=== PATIENT | female | born 2000 | race Caucasian/White ===

== ENCOUNTER 2021-05-08 17:27 | Emergency (ER) | payer OTHER, SELFPAY ==
[2021-05-08 17:33] VITALS: BP 115/59; PULSE 84; RESP 22; TEMP 37.7; O2SAT 98
--- NOTE | 2021-05-08 18:05 | ED.ABDPAIN ---
HPI - Abdominal Pain <Hector Ramsey PA-C - Last Filed: 05/08/21 19:52> General Chief Complaint: Abdominal Pain Stated Complaint: Really bad Lower back Pain,spine,NVD, Time Seen by Provider: 05/08/21 17:46 Source: patient Mode of arrival: Ambulatory History of Present Illness HPI narrative: Courtney presents today with chief complaint of right lower back pain and right abdominal pain. She reports that this has waxed and waned over the last month. She was seen in an emergency room in [place] 1 month ago and they were wanting to do a CT scan to evaluate for appendicitis. However, that did not happen. She recently moved up here and is now staying with a mortgage sales manager. She reports that her pain is worsened over the last 2 days. She denies any significant urinary symptoms, nausea, vomiting, chest pain, shortness of breath, cough, sore throat, runny nose, vaginal irritation, vaginal discharge, vaginal bleeding, rash or any other acute concerns or complaints at this time. She denies any drug use but does endorse occasional marijuana use. She denies any known medical problems. She denies any previous abdominal surgeries. Related Data Home Medications Medication Instructions Recorded Confirmed No Known Home Medications 05/08/21 05/08/21 Allergies Allergy/AdvReac Type Severity Reaction Status Date / Time No Known Drug Allergies Allergy Verified 05/08/21 17:37 Review of Systems <Hector Ramsey PA-C - Last Filed: 05/08/21 19:52> Review of Systems Narrative: As per HPI Patient History <Hector Ramsey PA-C - Last Filed: 05/08/21 19:52> Social History Smoking Status: Never smoker Smoking Status: Never smoker Exam <Hector Ramsey PA-C - Last Filed: 05/08/21 19:52> Narrative Exam Narrative: Const General: cooperative, healthy appearing, comfortable and no acute distress Nutritional Appearance: average body habitus and well nourished Orientation: alert and oriented x3 HENMT Head: normal to inspection and normocephalic Ears: hearing grossly normal bilaterally, external ears normal, TM's normal bilaterally, EAC's normal, mastoids normal and no periauricular adenopathy Nose: external nose normal, nares normal and no nasal discharge Face and sinus: normal facial exam, sinuses nontender and face symmetric Mouth: oral mucosae normal, lip normal, tongue normal and moist mucous membranes Teeth and gingiva: dentition normal and gingiva normal Throat: posterior oropharynx normal, uvula midline, no postnasal drainage and no uvular edema Eyes periorbital findings normal, eyelids normal, conjunctivae normal Neck: normal visual inspection, full ROM, no lymphadenopathy, no meningeal signs and supple Resp normal respiratory effort, able to speak in complete sentences, not labored and no respiratory distress, clear to auscultation bilaterally, no crackles, no rales and no wheezes Cardio regular rate regular rhythm Heart Sounds: no gallops, no murmurs and no rubs GI Nondistended, normal bowel sounds, minimal tenderness right lower quadrant, no guarding, negative Crowder sign, no rebound tenderness, no masses noted No CVA tenderness Musculoskeletal No midline spine final tenderness noted. Mild right-sided lower lumbar paraspinal muscle tenderness with palpation. Negative straight leg raise bilaterally. Skin No rash or lesions noted. Neuro Alert and Oriented x3, normal gait, moves all extremities. Initial Vital Signs Initial Vital Signs: Vital Signs Temperature 100 F H 05/08/21 17:33 Pulse Rate 84 05/08/21 17:33 Respiratory Rate 22 05/08/21 17:33 Blood Pressure 115/59 L 05/08/21 17:33 Pulse Oximetry 98 05/08/21 17:33 <Hayden Bui DO - Last Filed: 05/08/21 21:05> Initial Vital Signs Initial Vital Signs: Vital Signs Temperature 100 F H 05/08/21 17:33 Pulse Rate 84 05/08/21 17:33 Respiratory Rate 22 05/08/21 17:33 Blood Pressure 115/59 L 05/08/21 17:33 Pulse Oximetry 98 05/08/21 17:33 Course <Hector Ramsey PA-C - Last Filed: 05/08/21 19:52> Orders Ordered: ED Orders 05/08/21 18:00 C-Reactive Protein Quant Stat Complete Blood Count AUTO DIFF Stat Comprehensive Metabolic Panel Stat Erythrocyte Sedimentation Rate Stat Lipase Stat 05/08/21 19:09 CT abdomen pelvis w con Stat 05/08/21 19:35 COVID19 -Nasal swab/Pre-Proc Stat Discontinued Medications Sodium Chloride (Normal Saline 0.9%) 1,000 mls @ 1,000 mls/hr IV BOLUS ONE Stop: 05/08/21 19:09 Last Admin: 05/08/21 18:41 Dose: 1,000 mls/hr Documented by: ROLAN Ketorolac Tromethamine (Ketorolac 30 Mg/Ml Vial) 15 mg IV NOW ONE Stop: 05/08/21 18:05 Last Admin: 05/08/21 18:40 Dose: 15 mg Documented by: ROLAN Vital Signs Vital signs: Vital Signs - 8 hr 05/08/21 17:33 05/08/21 19:56 Temperature 100 F H Pulse Rate 84 68 Respiratory Rate 22 18 Blood Pressure 115/59 L 138/68 Pulse Oximetry 98 100 <Hayden Bui DO - Last Filed: 05/08/21 21:05> Orders Ordered: ED Orders 05/08/21 18:00 C-Reactive Protein Quant Stat Complete Blood Count AUTO DIFF Stat Comprehensive Metabolic Panel Stat Erythrocyte Sedimentation Rate Stat Lipase Stat 05/08/21 19:09 CT abdomen pelvis w con Stat 05/08/21 19:35 COVID19 -Nasal swab/Pre-Proc Stat Discontinued Medications Sodium Chloride (Normal Saline 0.9%) 1,000 mls @ 1,000 mls/hr IV BOLUS ONE Stop: 05/08/21 19:09 Last Admin: 05/08/21 18:41 Dose: 1,000 mls/hr Documented by: ROLAN Ketorolac Tromethamine (Ketorolac 30 Mg/Ml Vial) 15 mg IV NOW ONE Stop: 05/08/21 18:05 Last Admin: 05/08/21 18:40 Dose: 15 mg Documented by: ROLAN Vital Signs Vital signs: Vital Signs - 8 hr 05/08/21 17:33 05/08/21 19:56 Temperature 100 F H Pulse Rate 84 68 Respiratory Rate 22 18 Blood Pressure 115/59 L 138/68 Pulse Oximetry 98 100 MDM - Abdominal Pain <Hector Ramsey PA-C - Last Filed: 05/08/21 19:52> Lab Data Result diagrams: 05/08/21 18:00 05/08/21 18:00 Labs: Lab Results 05/08/21 05/08/21 05/08/21 Range/Units 18:00 18:00 18:00 WBC 7.8 (4.5-11.0) X10^3/uL RBC 4.80 (4.0-5.2) X10^6/uL Hgb 13.4 (12.0-16.0) g/dL Hct 40.5 (36-46) % MCV 84.3 (80-100) fL MCH 28.0 (26-34) PG MCHC 33.2 (30-36) % RDW 16.0 H (11.6-14.8) % Plt Count 256 (150-400) X10^3/uL Neut % (Auto) 55.3 (50-75) % Lymph % (Auto) 32.5 (25-40) % Schleicher % (Auto) 5.3 (3-14) % Eos % (Auto) 5.9 H (2-4) % Baso % (Auto) 1.0 (0-2) % Neut # (Auto) 4300 (2280-5133) /uL Lymph # (Auto) 2500 (4549-1265) /uL Schleicher # (Auto) 400 (0-900) /uL Eos # (Auto) 500 H (0-450) /uL Baso # (Auto) 100 (0-100) /uL ESR 7 (0-20) MM/HR Sodium 141 (137-145) mmol/L Potassium 4.1 (3.4-5.1) mmol/L Chloride 107 (98-107) mmol/L Carbon Dioxide 28 (22-32) mmol/L BUN 14 (7-17) mg/dL Creatinine 0.64 (0.52-1.04) mg/dL Estimated GFR > 60.0 (>60) mL/min BUN/Creatinine Ratio 21.9 (6-22) Glucose 89 (70-100) mg/dL Calcium 9.6 (8.4-10.2) mg/dL Total Bilirubin 0.3 (0.2-1.3) mg/dL AST 25 (14-36) IU/L ALT 18 (<35) IU/L Alkaline Phosphatase 82 (38-126) U/L C-Reactive Protein (<1.0) mg/dL Total Protein 7.6 (6.3-8.2) g/dL Albumin 4.5 (3.5-5.0) g/dL Globulin 3.1 (1.7-4.1) g/dL Albumin/Globulin Ratio 1.5 (1.0-2.8) Lipase 48 (23-300) U/L SARS-CoV-2 (PCR) (Negative) 05/08/21 05/08/21 Range/Units 18:00 19:35 WBC (4.5-11.0) X10^3/uL RBC (4.0-5.2) X10^6/uL Hgb (12.0-16.0) g/dL Hct (36-46) % MCV (80-100) fL MCH (26-34) PG MCHC (30-36) % RDW (11.6-14.8) % Plt Count (150-400) X10^3/uL Neut % (Auto) (50-75) % Lymph % (Auto) (25-40) % Schleicher % (Auto) (3-14) % Eos % (Auto) (2-4) % Baso % (Auto) (0-2) % Neut # (Auto) (8228-6970) /uL Lymph # (Auto) (0618-1252) /uL Schleicher # (Auto) (0-900) /uL Eos # (Auto) (0-450) /uL Baso # (Auto) (0-100) /uL ESR (0-20) MM/HR Sodium (137-145) mmol/L Potassium (3.4-5.1) mmol/L Chloride (98-107) mmol/L Carbon Dioxide (22-32) mmol/L BUN (7-17) mg/dL Creatinine (0.52-1.04) mg/dL Estimated GFR (>60) mL/min BUN/Creatinine Ratio (6-22) Glucose (70-100) mg/dL Calcium (8.4-10.2) mg/dL Total Bilirubin (0.2-1.3) mg/dL AST (14-36) IU/L ALT (<35) IU/L Alkaline Phosphatase (38-126) U/L C-Reactive Protein 0.6 (<1.0) mg/dL Total Protein (6.3-8.2) g/dL Albumin (3.5-5.0) g/dL Globulin (1.7-4.1) g/dL Albumin/Globulin Ratio (1.0-2.8) Lipase (23-300) U/L SARS-CoV-2 (PCR) Negative (Negative) Point of care testing: Point of Care Testing Test Results Negative Urine Dip Bedside Urine Glucose Negative Bedside Urine Bilirubin - Negative Bedside Urine Ketone - Negative Urine Specific [place] 1.020 Bedside Urine Occult Blood - Negative Bedside Urine pH 6.5 Bedside Urine Protein - Negative Bedside Urine Urobilinogen - Negative Bedside Urine Nitrite - Negative Bedside Urine Leukocytes - Negative Esterase <Hayden BuiDO - Last Filed: 05/08/21 21:05> Lab Data Labs: Lab Results 05/08/21 05/08/21 05/08/21 Range/Units 18:00 18:00 18:00 WBC 7.8 (4.5-11.0) X10^3/uL RBC 4.80 (4.0-5.2) X10^6/uL Hgb 13.4 (12.0-16.0) g/dL Hct 40.5 (36-46) % MCV 84.3 (80-100) fL MCH 28.0 (26-34) PG MCHC 33.2 (30-36) % RDW 16.0 H (11.6-14.8) % Plt Count 256 (150-400) X10^3/uL Neut % (Auto) 55.3 (50-75) % Lymph % (Auto) 32.5 (25-40) % Schleicher % (Auto) 5.3 (3-14) % Eos % (Auto) 5.9 H (2-4) % Baso % (Auto) 1.0 (0-2) % Neut # (Auto) 4300 (3435-0089) /uL Lymph # (Auto) 2500 (7968-2190) /uL Schleicher # (Auto) 400 (0-900) /uL Eos # (Auto) 500 H (0-450) /uL Baso # (Auto) 100 (0-100) /uL ESR 7 (0-20) MM/HR Sodium 141 (137-145) mmol/L Potassium 4.1 (3.4-5.1) mmol/L Chloride 107 (98-107) mmol/L Carbon Dioxide 28 (22-32) mmol/L BUN 14 (7-17) mg/dL Creatinine 0.64 (0.52-1.04) mg/dL Estimated GFR > 60.0 (>60) mL/min BUN/Creatinine Ratio 21.9 (6-22) Glucose 89 (70-100) mg/dL Calcium 9.6 (8.4-10.2) mg/dL Total Bilirubin 0.3 (0.2-1.3) mg/dL AST 25 (14-36) IU/L ALT 18 (<35) IU/L Alkaline Phosphatase 82 (38-126) U/L C-Reactive Protein (<1.0) mg/dL Total Protein 7.6 (6.3-8.2) g/dL Albumin 4.5 (3.5-5.0) g/dL Globulin 3.1 (1.7-4.1) g/dL Albumin/Globulin Ratio 1.5 (1.0-2.8) Lipase 48 (23-300) U/L SARS-CoV-2 (PCR) (Negative) 05/08/21 05/08/21 Range/Units 18:00 19:35 WBC (4.5-11.0) X10^3/uL RBC (4.0-5.2) X10^6/uL Hgb (12.0-16.0) g/dL Hct (36-46) % MCV (80-100) fL MCH (26-34) PG MCHC (30-36) % RDW (11.6-14.8) % Plt Count (150-400) X10^3/uL Neut % (Auto) (50-75) % Lymph % (Auto) (25-40) % Schleicher % (Auto) (3-14) % Eos % (Auto) (2-4) % Baso % (Auto) (0-2) % Neut # (Auto) (0237-5467) /uL Lymph # (Auto) (9170-7045) /uL Schleicher # (Auto) (0-900) /uL Eos # (Auto) (0-450) /uL Baso # (Auto) (0-100) /uL ESR (0-20) MM/HR Sodium (137-145) mmol/L Potassium (3.4-5.1) mmol/L Chloride (98-107) mmol/L Carbon Dioxide (22-32) mmol/L BUN (7-17) mg/dL Creatinine (0.52-1.04) mg/dL Estimated GFR (>60) mL/min BUN/Creatinine Ratio (6-22) Glucose (70-100) mg/dL Calcium (8.4-10.2) mg/dL Total Bilirubin (0.2-1.3) mg/dL AST (14-36) IU/L ALT (<35) IU/L Alkaline Phosphatase (38-126) U/L C-Reactive Protein 0.6 (<1.0) mg/dL Total Protein (6.3-8.2) g/dL Albumin (3.5-5.0) g/dL Globulin (1.7-4.1) g/dL Albumin/Globulin Ratio (1.0-2.8) Lipase (23-300) U/L SARS-CoV-2 (PCR) Negative (Negative) Point of care testing: Point of Care Testing Test Results Negative Urine Dip Bedside Urine Glucose Negative Bedside Urine Bilirubin - Negative Bedside Urine Ketone - Negative Urine Specific [place] 1.020 Bedside Urine Occult Blood - Negative Bedside Urine pH 6.5 Bedside Urine Protein - Negative Bedside Urine Urobilinogen - Negative Bedside Urine Nitrite - Negative Bedside Urine Leukocytes - Negative Esterase Imaging Data CT scan - abdomen/pelvis: Radiologist's Impression: [address] Scan ReportSigned Patient: Courtney Zuñiga LMR#: [id number]: 2000Acct:[id number]/Sex: 20 / FDate of Service: 05/08/21Loc: EDAccession Number: [id number] Procedure: CT abdomen pelvis w con Ordering Provider: Hector Ramsey P.A-C PROCEDURE: CT ABDOMEN PELVIS W CON INDICATIONS: RLQ abd pain TECHNIQUE: After the administration of intravenous contrast, axial sections acquired from the lung bases to the pubic symphysis. Coronal and sagittal reformats were performed. For radiation dose reduction, the following was used: automated exposure control, adjustment of mA and/or kV according to patient size. COMPARISON: None. FINDINGS: Image quality: Excellent. Lung bases: Unremarkable. Heart: No significant findings. ABDOMEN: Liver: Unremarkable. Gallbladder: Partially decompressed. Biliary ducts: Nondilated. Pancreas: Normal. Spleen: Unremarkable. Adrenal Glands: No nodules. Kidneys and Ureters: Normal enhancement. No hydronephrosis or perinephric inflammation. Stomach and Bowel: Stomach, small bowel loops, and colon are unremarkable. The appendix contains hyperdense material and is normal caliber. There are no periappendiceal inflammatory changes or fluid collections. Peritoneum: No abnormal intraperitoneal fluid. No free air. Ventral Wall: No hernias. Abdominal Nodes: No retroperitoneal or mesenteric adenopathy by size criteria. Vessels: Aorta and inferior vena cava are normal in size. PELVIS: Pelvic Organs: Anteverted uterus. Nonenlarged ovaries, though not well visualized. Bladder: Partially decompressed. Pelvic Nodes: No enlarged lymph nodes. Miscellaneous: No hernias are seen. Bones: Unremarkable. IMPRESSION: 1. Hyperdense material within the appendix without inflammatory changes. No CT evidence of acute appendicitis. 2. No explanation for right lower quadrant pain. Dictated by: Amie Norwood M.D. on 05/08/2021 at 20:40 Approved by: Amie Norwood M.D. on 05/08/2021 at 20:46 MDM Narrative Medical decision making narrative: Dr bui: Received turned over. Reviewed patient's history and physical exam. Patient's CT scan does not show any signs of an acute pathology. I did discuss this with her and family at bedside. No further workup needed in the emergency department. No indication for surgical consultation. Plan will be is to have them establish a primary doctor here in the area as they are most likely going to need referrals to see both Gastroenterology and also gynecology. They were given return precautions. They expressed understanding and agreement with plan. Discharge Plan Departure Patient Disposition: Home Clinical Impression: Abdominal pain Qualifiers: Abdominal location: unspecified location Qualified Code(s): R10.9 - Unspecified abdominal pain Low back pain Qualifiers: Chronicity: unspecified Back pain laterality: unspecified Sciatica presence: without sciatica Qualified Code(s): M54.5 - Low back pain Activity Restrictions/Additional Instructions: It was very nice to reach you this evening. Your evaluation today has been reassuring. Please monitor what foods you eat and see how that contributes to your symptoms. You can also take acetaminophen or ibuprofen as needed for pain management. For the low back, I recommend warm compresses as well as light stretching and walking. If you experience fever, worsening pain, or have any other acute concerns or complaints do not hesitate to return for re-evaluation. You can also contact the health creative resource manager at [phone]. Thank you Hector Ramsey PA-C Prescriptions: No Action No Known Home Medications RF: 0
[2021-05-08 18:08] LABS: Add Manual Diff / Slide Review NO; Basophils Absolute Auto 100 /uL (0-100); Eosinophils Absolute Auto 500 /uL (0-450); Eosinophils Percent Auto 5.9 % (2-4); Hematocrit 40.5 % (36-46); Hemoglobin 13.4 g/dL (12.0-16.0); Lymphocytes Absolute Auto 2500 /uL (1100-4500); Lymphocytes Percent Auto 32.5 % (25-40); Mean Corpuscular HGB Conc 33.2 % (30-36); Mean Corpuscular Volume 84.3 fL (80-100); Monocytes Absolute Auto 400 /uL (0-900); Monocytes Percent Auto 5.3 % (3-14); Neutrophils Absolute Auto 4300 /uL (1500-7000); Neutrophils Percent Auto 55.3 % (50-75); Platelet Count 256 X10^3/uL (150-400); White Blood Cell Count 7.8 X10^3/uL (4.5-11.0)
[2021-05-08 18:37] LABS: Alanine Aminotransferase 18 IU/L (<35); Albumin 4.5 g/dL (3.5-5.0); Albumin Globulin Ratio 1.5 (1.0-2.8); Alkaline Phosphatase 82 U/L (38-126); Aspartate Aminotransferase 25 IU/L (14-36); BUN Creatinine Ratio 21.9 (6-22); Bilirubin Total 0.3 mg/dL (0.2-1.3); Blood Urea Nitrogen 14 mg/dL (7-17); Calcium 9.6 mg/dL (8.4-10.2); Carbon Dioxide 28 mmol/L (22-32); Chloride 107 mmol/L (98-107); Estimated Glomerular Filt Rate > 60.0 mL/min (>60); Globulin 3.1 g/dL (1.7-4.1); Glucose 89 mg/dL (70-100); HEMOLYSIS < 15 (0-50); Lipase 48 U/L (23-300); Potassium 4.1 mmol/L (3.4-5.1); Sodium 141 mmol/L (137-145); Total Protein 7.6 g/dL (6.3-8.2)
[2021-05-08] MEDS: KETOROLAC 30 MG/ML VIAL 15 MG IV (18:40)
[2021-05-08] MEDS: SODIUM CHLORIDE 0.9% 1,000 ML 1000 ML IV (18:41)
[2021-05-08 18:50] LABS: C-Reactive Protein Quant 0.6 mg/dL (<1.0)
[2021-05-08 18:54] LABS: Erythrocyte Sedimentation Rate 7 MM/HR (0-20)
--- NOTE | 2021-05-08 19:09 | DI.CT.S_ITS ---
PROCEDURE: CT ABDOMEN PELVIS W CON INDICATIONS: RLQ abd pain TECHNIQUE: After the administration of intravenous contrast, axial sections acquired from the lung bases to the pubic symphysis. Coronal and sagittal reformats were performed. For radiation dose reduction, the following was used: automated exposure control, adjustment of mA and/or kV according to patient size. COMPARISON: None. FINDINGS: Image quality: Excellent. Lung bases: Unremarkable. Heart: No significant findings. ABDOMEN: Liver: Unremarkable. Gallbladder: Partially decompressed. Biliary ducts: Nondilated. Pancreas: Normal. Spleen: Unremarkable. Adrenal Glands: No nodules. Kidneys and Ureters: Normal enhancement. No hydronephrosis or perinephric inflammation. Stomach and Bowel: Stomach, small bowel loops, and colon are unremarkable. The appendix contains hyperdense material and is normal caliber. There are no periappendiceal inflammatory changes or fluid collections. Peritoneum: No abnormal intraperitoneal fluid. No free air. Ventral Wall: No hernias. Abdominal Nodes: No retroperitoneal or mesenteric adenopathy by size criteria. Vessels: Aorta and inferior vena cava are normal in size. PELVIS: Pelvic Organs: Anteverted uterus. Nonenlarged ovaries, though not well visualized. Bladder: Partially decompressed. Pelvic Nodes: No enlarged lymph nodes. Miscellaneous: No hernias are seen. Bones: Unremarkable. IMPRESSION: 1. Hyperdense material within the appendix without inflammatory changes. No CT evidence of acute appendicitis. 2. No explanation for right lower quadrant pain. Dictated by: Amie Norwood M.D. on 05/08/2021 at 20:40 Approved by: Amie Norwood M.D. on 05/08/2021 at 20:46
[2021-05-08 19:56] VITALS: BP 138/68; PULSE 68; RESP 18; O2SAT 100
[2021-05-08 20:18] LABS: COVID19 -Nasal RAPID Negative (Negative)
[2021-05-08 21:10] VITALS: BP 118/70; PULSE 70; O2SAT 100
== END 2021-05-08 21:10 | disposition home or self-care (01) ==
PROVIDERS: Emergency Medicine; Emergency Provider Physician Assistant
DX: R10.9 Unspecified abdominal pain (principal); M54.5 Low back pain; Z20.822 Contact with and (suspected) exposure to COVID-19
CPT/HCPCS: 36415; 74177; 80053; 81003; 81025; 83690; 85025; 85651; 86140; 87635; 96361; 96374; 99284; C9803; J1885; Q9967

== ENCOUNTER → 2021-09-09 09:48 | Outpatient (CLI) | payer OTHER, SELFPAY ==
[2021-09-10 16:08] LABS: Candida species Negative (Negative); Gardnerella vaginalis Negative (Negative); Trichomoas vaginalis Negative (Negative)
[2021-09-11 18:10] LABS: Chlamydia trachomatis Negative (Negative); Mycoplasma genitalium Negative (Negative); Neisseria gonorrhoeae Negative (Negative)
== END ==
PROVIDERS: PCP Family Medicine; Visit Provider Obstetrics & Gynecology
DX: N89.8 Other specified noninflammatory disorders of vagina (principal); N94.9 Unspecified condition associated with female genital organs and menstrual cycle; Z11.3 Encounter for screening for infections with a predominantly sexual mode of transmission
CPT/HCPCS: 87480; 87491; 87510; 87563; 87591; 87660

== ENCOUNTER 2021-11-20 09:45 | Outpatient (RCR) | payer OTHER, SELFPAY ==
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
--- NOTE | 2021-07-18 12:12 | PT.OPPOC ---
Physical, Occupational & Speech Therapy At [facility] Current Diagnoses Other chronic pain (07/18/21) Lumbago with sciatica, left side (07/18/21) Difficulty in walking, not elsewhere classified (07/18/21) Abnormal posture (07/18/21) Weakness (07/18/21) Visit Care Team Role Provider Type Hu Reed MD Attending Provider Non-Staff Primary Care Provider Referring Provider Specialty: Family Practice Address: [address] [place] [address], [address], [place], [address] Email: Plan Of Care PT-OP-T Assessment and Plan Start: 07/16/21 13:40 Freq: Status: Active Protocol: Document 07/18/21 10:45 [facility] (Rec: 07/18/21 11:46 [facility] [id number]) Physical Therapy Assessment Rehab Potential Rehabilitation Potential Good Evaluation Complexity Number of Personal Factors/Comorbidities 3 or More Number of Body Systems Impaired 4 or More Clinical Presentation at Evaluation Evolving Impairments Impairments Activity Tolerance,Balance, Functional Activities, Functional Mobility,Gait,Pain, Posture,ROM,Soft Tissue Mobility,Strength,Transfers Goals strength Short Term Goal (STG) Pt will be indep w/HEP STG Duration 08/18/21 [facility] Goal (LTG) Pt will score 5/5 on MMT of LEs in all planes w/o inc pain and at least 3/5 LPM to show improved stability in order to allow pt to do typical active requirements of job and her life. LTG Duration 09/18/21 activities Short Term Goal (STG) Pt will be able to put her clothes away w/o inc pain STG Duration 08/18/21 [facility] Goal (LTG) Pt will be able to stand, sit, lay down and walk for any length of time w/o inc pain. LTG Duration 09/18/21 nerve tension Short Term Goal (STG) Pt will be able to do ADLs requiring BLE movements w/o inc in pain into hip/LB STG Duration 08/18/21 Home Economics Extension Worker Goal (LTG) Pt will have neg slump, ext sit and SLR for neural tension B in order to allow full ROM of LEs w/o inc pain LTG Duration 09/18/21 posture Short Term Goal (STG) pt will be able to assume good postural alignment w/min cues without pain STG Duration 08/18/21 [facility] Goal (LTG) Pt will show improved posture w/scoring at least 4/5 on VCT when assuming appropriate posture w/o cueing LTG Duration 09/18/21 ERNESTO Impairment 26/50 Short Term Goal (STG) Pt will improve ERNESTO score to no higher than 16/50 to show improved functional ability. STG Duration 08/18/21 Home Economics Extension Worker Goal (LTG) Pt will improve ERNESTO score to no higher than 6/50 to show improved functional ability. LTG Duration 09/18/21 Assessment Summary Assessment Pt presents w/LBP that is lasting about 1 year w/unknown cause as pt notes she was working a lot and didn't have a lot of time for other activities that she feels would have causes pain. She has had mult flare ups/ reoccurances where the pain gets worse w/something like lifting her backpack, or a recent flare up occured d/t a fall fwd to her knees off her skateboard. She has inc in her back pain that is located mostly lower (coccyx/sacral/ lower lumbar) w/recent inc in upper lumbar/TL junction region pain w/B sides now bothering her that increases w /knee ext motion. She has poor postural alignment and weakness w/dec tissue mobility w/ROM likely causing pain including significantly flexed coccyx which likely is contributing to her neural tension. Pt would benefit from skilled PT to work on these deficits. Physical Therapy Plan Frequency and Duration Frequency of Treatment 1-2x/week Duration of Treatment 2 months Plan of Care Start Date 07/18/21 Plan of Care End Date 09/18/21 Therapeutic Interventions Therapeutic Interventions Aquatic Therapy,Balance Training,Gait Training,Home Exercise Program,Joint Mobilizations,Manual Therapy, Self-Care/Home Management,Soft Tissue Mobilization,Taping, Therapeutic Activities, Therapeutic Exercises Modalities Cold Pack/Ice Massage,Electric Stimulation,Hot Packs, Traction- Mechanical, Ultrasound Next Visit Focus/Plan Next Note Type Treatment Note Next Visit Plan wall posture, cat/camel,supine core progression for HEP, work on joint mobs of hip, coccyx, sacrum Plan of Care Dates Plan of Care Start Date 07/18/21 Plan of Care End Date 09/18/21 Electronically Signed by: Nelia Roach, PT 07/18/21 1212 Please Sign and Return: I have reviewed this Plan of Care and certify that the skilled therapy services above are required to meet the patient?s needs. Physician Signature Date Printed Name and Credentials Clinical Instructor Signature Printed Name and Credentials
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
--- NOTE | 2021-08-30 10:11 | PT-IP ANOTE ---
Called and left VM about cx policy and date of next appt.
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
--- NOTE | 2021-09-02 13:01 | PT.OPPOC ---
Physical, Occupational & Speech Therapy At Located Within [facility] Current Diagnoses Other chronic pain (09/02/21) Lumbago with sciatica, left side (09/02/21) Difficulty in walking, not elsewhere classified (09/02/21) Abnormal posture (09/02/21) Weakness (09/02/21) Visit Care Team Role Provider Type Hu Reed MD Attending Provider Non-Staff Primary Care Provider Referring Provider Specialty: Family Practice Address: [address] [place] [address], [address], [place], [address] Email: Plan Of Care PT-OP-T Assessment and Plan Start: 07/16/21 13:40 Freq: Status: Active Protocol: Document 09/02/21 11:22 [facility] (Rec: 09/02/21 13:01 [facility] [id number]) Physical Therapy Assessment Goals strength Short Term Goal (STG) Pt will be indep w/HEP STG Duration achieved-progressing as able Detention Goal (LTG) Pt will score 5/5 on MMT of LEs in all planes w/o inc pain and at least 3/5 LPM to show improved stability in order to allow pt to do typical active requirements of job and her life. 09/02-improved LTG Duration 10/31/21 activities Short Term Goal (STG) Pt will be able to put her clothes away w/o inc pain 09/02-was doing well until last week started again STG Duration 10/03/21 Card Tape Converter Operator Goal (LTG) Pt will be able to stand, sit, lay down and walk for any length of time w/o inc pain. 09/02-has not done any long hikes, sitting and standing are better but still uncomfortable and has to squirm LTG Duration 10/31/21 nerve tension Short Term Goal (STG) Pt will be able to do ADLs requiring BLE movements w/o inc in pain into hip/LB STG Duration achieved Detention Goal (LTG) Pt will have neg slump, ext sit and SLR for neural tension B in order to allow full ROM of LEs w/o inc pain 09/02-still positive LTG Duration 10/31/21 posture Short Term Goal (STG) pt will be able to assume good postural alignment w/min cues without pain STG Duration achieved 09/02 Detention Goal (LTG) Pt will show improved posture w/scoring at least 4/[address] when assuming appropriate posture w/o cueing 09/02-still limited LTG Duration 10/31/21 ERNESTO Impairment 26/50 Short Term Goal (STG) Pt will improve ERNESTO score to no higher than 16/50 to show improved functional ability. 09/02- STG Duration 10/03/21 Detention Goal (LTG) Pt will improve ERNESTO score to no higher than 6/50 to show improved functional ability. LTG Duration 10/31/21 Assessment Summary Assessment Pt was making excellent progress through last thursday where she had significantly notable dec pain and was feeling more functional, but noted later that week that coccyx pain was inc again and more nerve tension, BAEZ more frequent, upper thoracic tension/discomfort & stiffness in middle and pinky fingers and inc difficutly focusing w/ eyes. She had imrpoved ER in hips after manual today and imrpoved thoracic ext. Pt was encourage dto stay in comfortable position when working on posture also. Physical Therapy Plan Frequency and Duration Frequency of Treatment 1-2x/week Duration of Treatment 2 months Plan of Care Start Date 09/02/21 Plan of Care End Date 10/31/21 Therapeutic Interventions Therapeutic Interventions Aquatic Therapy,Balance Training,Gait Training,Home Exercise Program,Joint Mobilizations,Manual Therapy, Neuromuscular Re-education, Self-Care/Home Management,Soft Tissue Mobilization,Taping, Therapeutic Activities, Therapeutic Exercises Modalities Biofeedback,Cold Pack/Ice Massage,Electric Stimulation, Hot Packs,Traction- Mechanical ,Ultrasound Next Visit Focus/Plan Next Note Type Treatment Note Next Visit Plan work on pelvic floor/coccyx release, work on thoracic mobility for better posture w/ o lumbar strain, core stability exercises; work on hip and thigh mobility to improve pt ability to stand w/ knees fwd w/o inc stress to hips or knees Plan of Care Dates Plan of Care Start Date 09/02/21 Plan of Care End Date 10/31/21 Electronically Signed by: Nelia Roach, PT 09/02/21 1301 Please Sign and Return: I have reviewed this Plan of Care and certify that the skilled therapy services above are required to meet the patient?s needs. Physician Signature Date Printed Name and Credentials Clinical Instructor Signature Printed Name and Credentials
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
--- NOTE | 2021-10-31 11:59 | PT-OP ANOTE ---
Pt's provider was called re: concern of pt feeling like eyes black out feeling lightheaded w/cervical rotation and message left w/front office secretary personal who plans to relay to MD.
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
== END 2022-02-05 14:03 ==
LOC: PHYS 09:45
PROVIDERS: PCP Family Medicine; Referring Provider Family Medicine; Visit Provider Family Medicine
DX: M54.42 Lumbago with sciatica, left side (principal); G89.29 Other chronic pain; R53.1 Weakness; R29.3 Abnormal posture; R26.2 Difficulty in walking, not elsewhere classified; M54.2 Cervicalgia; M25.511 Pain in right shoulder; M25.512 Pain in left shoulder
CPT/HCPCS: 97010; 97014; 97110; 97112; 97140; 97162; 97164; 97530; 97535; 97750; G0283

== ENCOUNTER 2022-07-30 18:57 | Emergency (ER) | payer OTHER, SELFPAY ==
[2022-07-30 19:13] VITALS: BP 146/64; PULSE 84; RESP 16; TEMP 36.7; O2SAT 99; BMI 24.9
--- NOTE | 2022-07-30 19:19 | DI.RAD.S_ITS ---
PROCEDURE: XR ELBOW LT MIN 3V INDICATIONS: pain TECHNIQUE: 3 views of the elbow were acquired. COMPARISON: None. FINDINGS: Bones: No fractures or dislocations. No suspicious bony lesions. Soft tissues: No elbow joint effusion. No suspicious soft tissue calcifications. IMPRESSION: No acute fracture. No osseous lesion. If symptoms and/or clinical suspicion for pathology persist, further assessment with repeat, or advanced imaging (e.g., CT, MRI, or bone scan) may be helpful for further assessment. Dictated by: Matilde Simeon M.D. on 07/30/2022 at 19:33 Approved by: Matilde Simeon M.D. on 07/30/2022 at 19:34
--- NOTE | 2022-07-30 20:04 | ED_ITS ---
HPI - General Adult General Chief complaint: Extremity Injury, Upper Stated complaint: hurt left elbow at work, wants x ray Time Seen by Provider: 07/30/22 19:01 Source: patient Mode of arrival: Ambulatory History of Present Illness HPI narrative: Otherwise healthy 22-year-old female who is here for evaluation of a left elbow injury. States she was at work. She was walking [place] she slipped. She reached out with her left hand and grabbed the railing. She did not land on her left elbow but after this incident she did have left elbow pain. It does hurt when she flexes her elbow. She rep orts no other injuries from the event. Has not tried anything for her symptoms prior to arrival. Related Data Home Medications Medication Instructions Recorded Confirmed dextroamphetamine-amphetamine 10 10 mg PO BID 09/09/21 09/09/21 mg tablet (Adderall) trazodone 50 mg tablet 50 mg PO BEDTIME PRN 09/09/21 09/09/21 Allergies Allergy/AdvReac Type Severity Reaction Status Date / Time No Known Drug Allergies Allergy Verified 09/09/21 08:56 Review of Systems Musculoskeletal Musculoskeletal: Reports system reviewed and no additional complaints, except as documented Integumentary/Breasts Skin/Breast: Reports system reviewed and no additional complaints, except as documented Neurologic Neurologic: Reports system reviewed and no additional complaints, except as documented Patient History Social History Smoking Status: Never smoker Smoking Status: Never smoker Substance Use Type: does not use Exam Initial Vital Signs Initial Vital Signs: Vital Signs Temperature 98.0 F 07/30/22 19:13 Pulse Rate 84 07/30/22 19:13 Respiratory Rate 16 07/30/22 19:13 Blood Pressure 146/64 H 07/30/22 19:13 Pulse Oximetry 99 07/30/22 19:13 Oxygen Delivery Method 07/30/22 19:13 Const General: cooperative and ill appearing HENKS Head: normal to inspection and normocephalic Cardio Pulses: radial pulses present on the left Skin General: no rashes or lesions noted Neuro Sensory Exam: no sensory deficits noted Extrem Other: Patient's biceps and triceps are intact. She is tenderness over the lateral epicondyle of the left elbow. Olecranon is unremarkable. Her forearm and wrist unremarkable. Shoulders unremarkable. She does have some discomfort over the lateral epicondyle flexion of the elbow. Course Orders Ordered: ED Orders 07/30/22 19:19 XR elbow LT min 3V Stat Vital Signs Vital signs: Vital Signs - 8 hr 07/30/22 19:13 07/30/22 20:17 Temperature 98.0 F 98.8 F Pulse Rate 84 69 Respiratory Rate 16 Blood Pressure 146/64 H 119/75 Pulse Oximetry 99 100 Oxygen Delivery Method Room Air Room Air Medical Decision Making Imaging Data Extremity x-ray #1: Radiologist's Impression: [address] [address] XRay Report Signed Patient: Courtney Zuñiga MR#: [id number] : 2000 Acct:[id number] Age/Sex: 22 / F Date of Service: 07/30/22 Loc: ED Accession Number: [id number] ?? Procedure: XR elbow LT min 3V Ordering Provider: Hayden Bui D.O. PROCEDURE:? XR ELBOW LT MIN 3V ? INDICATIONS:? pain ? TECHNIQUE:? 3 views of the elbow were acquired.? ? COMPARISON:? None. ? FINDINGS:? ? Bones:? No fractures or dislocations.? No suspicious bony lesions.? ? Soft tissues:? No elbow joint effusion.? No suspicious soft tissue calcifications.? ? ? IMPRESSION:? No acute fracture. No osseous lesion. If symptoms and/or clinical suspicion for pathology persist, further assessment with repeat, or advanced imaging (e.g., CT, MRI, or bone scan) may be helpful for further assessment. ? ? Dictated by: Matilde Simeon M.D. on 07/30/2022 at 19:33 ? ? Approved by: Matilde Simeon M.D. on 07/30/2022 at 19:34? MDM Narrative Medical decision making narrative: Patient is neurovascularly intact. X-ray shows no signs of fracture. We did discuss the potential for soft tissue injury. She will do conservative treatments for now to include Tylenol and ibuprofen and will purchase an elbow brace if she would like this. She was informed that if her symptoms do not improve over the next couple days she may need re-evaluation for further advanced imaging. She was given return precautions. She expressed u nderstanding and agreement. Discharge Plan Departure Patient Disposition: Home Clinical Impression: Elbow sprain Instructions: DI for Elbow Sprain Activity Restrictions/Additional Instructions: You can purchase an elbow brace for your comfort and use it as needed. Also recommend ice. Your symptoms should improve over the next couple days. If it does not improve then you may need follow-up for further evaluation. Prescriptions: No Action dextroamphetamine-amphetamine [Adderall] 10 mg tablet 10 mg PO BID Rx Instructions: administer doses at least 4-6 hours apart trazodone 50 mg tablet 50 mg PO BEDTIME PRN Referrals: Hu Reed MD [Primary Care Provider] - Visit Report Forms: Patient Portal/API
[2022-07-30 20:17] VITALS: BP 119/75; PULSE 69; TEMP 37.1; O2SAT 100
== END 2022-07-30 20:20 | disposition home or self-care (01) ==
PROVIDERS: Emergency Provider Emergency Medicine; PCP Family Medicine
DX: S53.402A Unspecified sprain of left elbow, initial encounter (principal); W01.0XXA Fall on same level from slipping, tripping and stumbling without subsequent striking against object, initial encounter; Y92.89 Other specified places as the place of occurrence of the external cause
CPT/HCPCS: 73080; 99281; 99283